=== PATIENT | female | born 1955 | race Asian ===

== ENCOUNTER 2018-06-27 12:13 | Day surgery (SDC) | payer OTHER ==
[2018-06-27] MEDS ORDERED: PROPOFOL 20 ML (14:17)
[2018-06-27] MEDS ORDERED: FENTAnyl 50 MCG/ML VIAL (14:17)
[2018-06-27] MEDS ORDERED: MIDAZOLAM 1 MG/ML 2 ML INJ (14:17)
[2018-06-27] MEDS ORDERED: ETOMIDATE 20 MG INJ ×2 (14:17→14:18)
[2018-06-27] MEDS ORDERED: LIDOCAINE 2% (SDV) 5 ML INJ (14:17)
== END 2018-06-27 17:20 | disposition home or self-care (01) ==
LOC: GIL 12:13
DX: R19.5 Other fecal abnormalities (principal); K25.7 Chronic gastric ulcer without hemorrhage or perforation; K29.30 Chronic superficial gastritis without bleeding; K64.1 Second degree hemorrhoids
CPT/HCPCS: 43239; 88305; 88312